=== PATIENT | female | born 1925 | race Caucasian/White ===

== ENCOUNTER 2016-10-23 12:55 | Emergency (ER) | payer OTHER, MEDICARE ==
--- NOTE | 2016-10-23 13:05 | EDPHY ---
[facility] HPI/ROS: CHIEF COMPLAINT: Left wrist pain HISTORY OF PRESENT ILLNESS: This is an 89-year-old female who had a mechanical fall when she tripped on an electric cord. She did not strike her head or lose consciousness. Her glasses did impact the side of her head and she has a laceration at that site (left brow). Her main concern now is of left wrist pain. She is right-hand dominant. This was a mechanical fall with no preceding events. She denies headache, neck pain, back pain, new numbness, new weakness, abdominal pain, chest pain, or difficulty breathing. REVIEW OF SYSTEMS: A ten point review of systems was performed and is negative with the exception of the items mentioned in the HPI. Source: Patient Exam Limitations: No limitations - Personal History Current Tetanus/Diphtheria Vaccine: Yes Current Tetanus Diphtheria and Acellular Pertussis (TDAP): Yes Tetanus Vaccine Date: with in 10 years - Medical/Surgical History Hx Asthma: No Hx Chronic Respiratory Disease: No Hx Diabetes: No Hx Cardiac Disease: Yes Hx Renal Disease: No Hx Cirrhosis: No Hx Alcoholism: No Hx HIV/AIDS: No Hx Splenectomy or Spleen Trauma: No Other PMH: 1. Coronary artery disease status post LAD stent in 2004. 2. Paroxysmal atrial fibrillation on baby aspirin. 3. 6 sinus syndrome status post pacemaker. 4. Hypertension. 5. Dyslipidemia. 6. Osteoporosis. 7. GERD. Past surgical history 1. Bilateral total knee replacements. 2. Throat surgery for parotid gland tumor. 3. Appendectomy. 4. Tonsillectomy. 5. Hysterectomy - Social History Smoking Status: Never smoked Additional Social History: She lives with her . No tobacco or alcohol use. - Physical Exam Exam: General Appearance: Alert. Vital signs reviewed. Blood pressure 190/96. Head: Left periorbital ecchymosis and swelling, particularly and lower with eating the left upper lid. There is a 1.5 cm laceration on the left lateral eyebrow with mild bleeding. Eyes: Pupils equal and round, no conjunctival injection, no discharge. Anicteric. ENT, Mouth: Mucous membranes are moist, no oropharyngeal erythema or edema. Neck: No lymphadenopathy, supple. Respiratory: Lungs are clear to auscultation; no wheezes, rales, or rhonchi. Cardiovascular: Regular rate and rhythm; no murmur, rub, or gallop. Gastrointestinal: Abdomen is soft and nontender, no masses or organomegaly, bowel sounds normal. Skin: Warm and dry, no rashes on exposed skin, normal color. Back: Nontender to palpation over the thoracolumbar spine. No CVAT. Extremities: Obvious deformity distal left wrist/proximal hand. Pulses: 2+ bilateral radial pulses. Neurological: Alert and oriented. Moving all right arm and both legs easily. Cranial nerves II through XII are examined and are intact (visual acuity not tested). Sensation is intact to light touch over all 4 extremities. Psychiatric: Normal affect. Constitutional: Initial Vital Signs Temperature (C) 36.9 C 10/23/16 12:56 Heart Rate 88 10/23/16 12:56 Respiratory Rate 14 10/23/16 12:56 Blood Pressure 190/96 H 10/23/16 12:56 O2 Sat (%) 95 10/23/16 12:56 O2 Delivery Mode Room Air Allergies/Adverse Reactions: codeine [Codeine] Allergy (Verified 08/19/14 14:48) CRAZY Home Medications: Medication Instructions Recorded Ascorbic Acid [Vitamin C 500 mg 500 mg PO DAILY 03/05/14 (*)] Aspirin EC [Aspirin EC 81 mg (*)] 81 mg PO DAILY 03/05/14 Atorvastatin Calcium [Lipitor 20 20 mg PO DAILY 03/05/14 mg (*)] Calcium Carb W/Vit D [Calcium Carb 500 mg PO DAILY 03/05/14 W/Vit D 500/200 (*)] Carbidopa/Levodopa 10/100Mg 0.5 tab PO HS 03/05/14 [Sinemet 10/100 MG (*)] Cholecalciferol Vit D3 [Vitamin D3 1,000 units PO BID 03/05/14 (*)] Digoxin [Lanoxin 0.125 mg] 0.125 mg PO DAILY 03/05/14 Docusate Sodium [Colace 100 MG (*)] 100 mg PO DAILY PRN 03/05/14 Ezetimibe [Zetia 10 MG (*)] 10 mg PO HS 03/05/14 Furosemide [Lasix 20 MG (*)] 10 mg PO 0800,1500 03/05/14 Gabapentin [Neurontin 300 MG (*)] 300 mg PO BID 03/05/14 Glucosamine/Chondroitin 2 each PO DAILY 03/05/14 [Glucosamine/Chondroitin (*)] Herbals/Supplements -Info Only 1 ea PO DAILY 03/05/14 Levothyroxine [Synthroid 88 mcg 88 mcg PO DAILY06 03/05/14 (*)] Metaxalone [Skelaxin 800 mg (*)] 800 mg PO BID PRN 03/05/14 Metoprolol Succinate Xr [Toprol Xl 50 mg PO DAILY 03/05/14 50 mg (*)] Pilocarpine HCl [Salagen 5mg (*)] 5 mg PO QID PRN #0 03/05/14 Pramipexole Di-HCl [Mirapex 0.25 0.375 mg PO HS 03/05/14 mg (*)] amLODIPine BESYLATE [Norvasc 10 mg 10 mg PO DAILY 03/05/14 (*)] cycloSPORINE 0.05% [Restasis Opht 1 drop EACHEYE BID 03/05/14 Drops(*)] traMADol [Ultram 50 mg (*)] 50 mg PO HS PRN 03/05/14 traZODone [traZODONE 50MG (*)] 150 mg PO HS 03/05/14 Ranolazine [Ranexa] 500 mg PO BID #60 tab.er 03/06/14 Pantoprazole Sodium [Protonix 40mg 40 mg PO DAILY #30 tab 03/07/14 (*)] Carboxymethylcellulos/Glycerin 1 drop EACHEYE PRN PRN 06/08/15 [Refresh Optive Eye Drops] Isosorbide Mononitrate [Imdur 30 30 mg PO DAILY 06/08/15 mg (*)] Multivitamins W-Minerals [Thera M 1 each PO DAILY 06/08/15 Plus Tablet (*)] Meloxicam [Mobic 15 mg] 15 mg PO DAILY 01/16/16 oxyCODONE HCL/ACETAMINOPHEN 1 each PO DAILY PRN 01/16/16 [Percocet 10-325 mg Tablet] oxyCODONE HCL/ACETAMINOPHEN 1 each PO HS 01/16/16 [Percocet 10-325 mg Tablet] Medical Decision Making - Diagnostics Imaging: Left wrist x-ray reviewed by me in PACs. There is a distal radius fracture with intra-articular involvement. There is mild impaction and minimal displacement. Procedures: Sugar-tong splint was applied to the left arm/wrist by the emergency department hearing aid repair technician. I examined the patient after splint application. Neurovascular status is intact. Alignment is appropriate. Capillary refill is brisk. A sling is also applied. Procedure: Laceration repair. Verbal consent was obtained from the patient. The 1.5 cm laceration on the left lateral eyebrow was anesthetized in the usual fashion with 1% lidocaine with epinephrine. The wound was irrigated, draped and explored to its base with a gloved finger. There were no deep structures involved. The wound was repaired with 6-0 nylon . The wound repair was single layer. The procedure was performed by myself. ED Course/Re-evaluation: Eyebrow laceration was repaired. X-ray of the left wrist shows a fracture of the distal left radius with intra- articular involvement. There is some impaction and minimal displacement. Sugar-tong splint and sling were applied. I spoke with Dr. Srinivas Davalos who reviewed the x-rays. He plans surgery. He has requested preoperative studies which have been done in the emergency department including chest x-ray, EKG, CBC, and chemistries. Patient is discharged home with her family. She will follow up with her primary care physician and with Dr. Davalos. Danger signs that should prompt her to be re-evaluated immediately were reviewed with her and with her family. Differential Diagnosis: I considered a differential diagnosis of traumatic injury that includes but is not limited to intracranial hemorrhage, skull fracture, concussion, vertebral injury, spinal cord injury, intrathoracic injury, intra-abdominal injury, long bone fractures, contusions, abrasions, and lacerations. - Data Points Laboratory Results: Laboratory Results 10/23/16 13:20 10/23/16 13:20 10/23/16 13:20 WBC 5.80 10^3/uL (3.80-9.50) RBC 4.27 10^6/uL (4.18-5.33) Hgb 13.6 g/dL (12.6-16.3) Hct 39.5 % (38.0-47.0) MCV 92.5 fL (81.5-99.8) MCH 31.9 pg (27.9-34.1) MCHC 34.4 g/dL (32.4-36.7) RDW 13.2 % (11.5-15.2) Plt Count 127 L 10^3/uL (150-400) MPV 10.3 fL (8.7-11.7) Neut % (Auto) 70.4 % (39.3-74.2) Lymph % (Auto) 18.4 % (15.0-45.0) Crane % (Auto) 5.7 % (4.5-13.0) Eos % (Auto) 4.7 % (0.6-7.6) Baso % (Auto) 0.5 % (0.3-1.7) Nucleat RBC Rel Count 0.0 % (0.0-0.2) Absolute Neuts (auto) 4.08 10^3/uL (1.70-6.50) Absolute Lymphs (auto) 1.07 10^3/uL (1.00-3.00) Absolute Monos (auto) 0.33 10^3/uL (0.30-0.80) Absolute Eos (auto) 0.27 10^3/uL (0.03-0.40) Absolute Basos (auto) 0.03 10^3/uL (0.02-0.10) Absolute Nucleated RBC 0.00 10^3/uL (0-0.01) Immature Gran % 0.3 % (0.0-1.1) Immature Gran # 0.02 10^3/uL (0.00-0.10) Sodium 136 mEq/L (134-144) Potassium 4.1 mEq/L (3.5-5.2) Chloride 99 mEq/L (97-110) Carbon Dioxide 27 mEq/l (22-31) Anion Gap 10 mEq/L (8-16) BUN 20 mg/dL (7-23) Creatinine 0.6 mg/dL (0.6-1.0) Estimated GFR > 60 Glucose 98 mg/dL (70-100) Calcium 9.8 mg/dL (8.5-10.4) Medications Given: Discontinued Medications Hydromorphone HCl (Dilaudid) 0.5 mg IVP EDNOW ONE Stop: 10/23/16 13:08 Last Admin: 10/23/16 13:25 Dose: 0.5 mg Hydromorphone HCl (Dilaudid) 0.5 mg IVP EDNOW ONE Stop: 10/23/16 13:57 Last Admin: 10/23/16 14:02 Dose: 0.5 mg Tetracaine/Epinephrine/Lidocaine (Lets Soln Topical) 1 ea TP EDNOW ONE Stop: 10/23/16 13:33 Last Admin: 10/23/16 13:37 Dose: 1 ea Departure - Departure Disposition: Home, Routine, Self-Care Clinical Impression: Wrist fracture, closed Qualifiers: Qualifier Code: (S62.102A) Fracture of unspecified carpal bone, left wrist, initial encounter for closed fracture Facial laceration Qualifiers: Qualifier Code: (S01.81XA) Laceration without foreign body of other part of head, initial encounter Condition: Good Instructions: Wrist Fracture in Adults (ED), RICE Therapy (ED), Splint Care (ED ), Facial Laceration (ED) Additional Instructions: Wear the splint at all times. It is okay to take the percocet that you have if you are having wrist pain. You are being referred to Dr. Flex Davalos, orthopedic surgeon. He will likely do surgery on your left wrist. Call his office tomorrow morning to arrange a follow-up appointment with him. Let the office staff know that you were seen in the emergency department and that doctor has looked at your x-rays. There 7 stitches in your eyebrow. They need to be removed in 7 days. Referrals: Sabrina Bautista MD [Primary Care Provider] - As per Instructions Srinivas Davalos MD [Medical Doctor] - As per Instructions
[2016-10-23] MEDS ORDERED: HYDROmorphONE/DILAUDID 1 MG/ML SYR IVP ONE ×2 (13:07→13:56)
[2016-10-23] MEDS ORDERED: LETS SOLN TOPICAL 1 EA SYR TP ONE (13:32)
[2016-10-23 14:02] VITALS: O2SAT 93
--- NOTE | 2016-10-23 14:20 | DX ---
Portable left wrist series 3 views 1338 hours. History: Left wrist pain and swelling following fall. Findings: There is complex distal left radial fracture with fragments noted posteriorly and intra-art icular involvement. There is a small amount of depression of the posterior fragments with minimal dis placement. No additional fractures are appreciated. Marked joint space narrowing with endplate sclero sis and osteophytes are seen at the first carpometacarpal joint with mild narrowing at the trapezium navicular joint. There is soft tissue swelling about the wrist. Impression: 1. Complex fracture distal left radius with intra-articular involvement and mild depression of the po sterior aspect with minimal displacement.
[2016-10-23 15:28] LABS: % IMMATURE GRANULYOCYTES 0.3 % (0.0-1.1); ABSOLUTE IMMATURE GRANULOCYTES 0.02 10^3/uL (0.00-0.10); ADD DIFF? NO; ADD MORPH? NO; ADD SCAN? NO; ATYPICAL LYMPHOCYTE FLAG 10 (0-99); FRAGMENT RBC FLAG 0 (0-99); HEMATOCRIT 39.5 % (38.0-47.0); HEMOGLOBIN 13.6 g/dL (12.6-16.3); LEFT SHIFT FLG 0 (0-99); LIPEMIA HEMOLYSIS FLAG 90 (0-99); MEAN CELL HEMOGLOBIN 31.9 pg (27.9-34.1); MEAN CELL HEMOGLOBIN CONCENTR. 34.4 g/dL (32.4-36.7); MEAN CELL VOLUME 92.5 fL (81.5-99.8); MEAN PLATELET VOLUME 10.3 fL (8.7-11.7); PLATELET CLUMPS FLAG 0 (0-99); PLATELET COUNT 127 10^3/uL (150-400); RED BLOOD CELL COUNT 4.27 10^6/uL (4.18-5.33); RED CELL DISTRIBUTION WIDTH 13.2 % (11.5-15.2)
[2016-10-23 15:32] LABS: ANION GAP 10 mEq/L (8-16); CALCIUM 9.8 mg/dL (8.5-10.4); CARBON DIOXIDE 27 mEq/l (22-31); CHLORIDE 99 mEq/L (97-110); CREATININE 0.6 mg/dL (0.6-1.0); GLOMERULAR FILTRATION RATE > 60; GLUCOSE 98 mg/dL (70-100); POTASSIUM 4.1 mEq/L (3.5-5.2); SODIUM 136 mEq/L (134-144)
--- NOTE | 2016-10-23 16:03 | DX ---
AP and lateral chest x-ray 1516 hours. History: Chest pain. Wrist fracture. Findings: Comparison to August 19, 2014 Heart size is remains mildly enlarged. Pulmonary vasculature is mildly prominent centrally similar to the prior study. Dual-lead pacemaker unit is in stable position. There is no consolidation, effusion , or pneumothorax. There is stable subtle reticulonodular pattern inferior aspect right upper lobe la terally. The lungs are mildly hyper expanded similar to the prior study. Arteriosclerotic calcificati on is present at the aortic arch level. Osseous structures are unchanged. Impression: 1. No active cardiopulmonary disease seen. 2. Stable subtle chronic reticulonodular scarring pattern inferior aspect right upper lobe laterally. 3. Stable mild cardiomegaly. 4. Hyper expanded lungs similar to the prior study possibly from underlying COPD/emphysema.
--- NOTE | 2016-10-23 16:17 | CPEKG ---
Heart Rate: 77 RR Interval: 779 P-R Interval: 184 QRSD Interval: 124 QT Interval: 400 QTC Interval: 453 P [place]: 75 QRS [place]: -48 T Wave [place]: 109 EKG Severity - ABNORMAL ECG - EKG Impression: SINUS RHYTHM EKG Impression: LEFT BUNDLE BRANCH BLOCK Electronically Signed By: Halina Infante 23-Oct-2016 16:31:56
[2016-10-23 16:25] VITALS: BP 187/77; PULSE 72; RESP 16; TEMP 98.1
== END 2016-10-23 16:25 | disposition home or self-care (01) ==
PROC: 0HQ1XZZ Repair Face Skin, External Approach (ICD-10-PCS; principal; 2016-10-23)
DX: S52.571A Other intraarticular fracture of lower end of right radius, initial encounter for closed fracture (principal); I25.10 Atherosclerotic heart disease of native coronary artery without angina pectoris; I10 Essential (primary) hypertension; S01.81XA Laceration without foreign body of other part of head, initial encounter; Z95.0 Presence of cardiac pacemaker; Z79.82 Long term (current) use of aspirin; W01.0XXA Fall on same level from slipping, tripping and stumbling without subsequent striking against object, initial encounter
CPT/HCPCS: 12011; 71020; 73110; 93005; 96374; 96376; 99285; A4565; J1170

== ENCOUNTER → 2017-04-01 | Outpatient (CLI) | payer OTHER, MEDICARE | LOC: FIMAGING 11:26 | PROVIDERS: ATTEND Nurse Practitioner Adult Health | DX: Z45.018 Encounter for adjustment and management of other part of cardiac pacemaker (principal) ==